=== PATIENT | female | born 1955 | race Caucasian/White ===

== ENCOUNTER 2020-03-17 10:26 | Emergency (ER) | payer MEDICARE, MEDICAID ==
[~2020-03-17] VITALS: Ht 170.2 cm; Wt 83.0 kg
[2020-03-17] MEDS ORDERED: LORazepam 2 mg/ml vial IV ONE (10:50)
[2020-03-17] MEDS ORDERED: normal saline 1000ML IV soln IVB ONE (10:50)
[2020-03-17] MEDS ORDERED: methylPREDNISolone sod succ 125mg/2ml vial IV ONE (10:50)
[2020-03-17] MEDS ORDERED: albuterol 2.5 MG/3 ML nebule NEB ONE (10:50)
[2020-03-17 11:17] LABS: BASOPHILS # (AUTO) 0.1 X10'3 (0-0.2); BASOPHILS % (AUTO) 1.4 % (0-1); EOSINOPHILS # (AUTO) 0.2 X10'3 (0-0.9); EOSINOPHILS % (AUTO) 3.3 % (0-6); HEMATOCRIT 38.5 % (35.0-45.0); HEMOGLOBIN 12.5 g/dl (12.0-16.0); LYMPHOCYTES # (AUTO) 2.4 X10'3 (1.1-4.8); LYMPHOCYTES % (AUTO) 35.1 % (21-51); MEAN CORPUSCULAR HEMOGLOBIN 26.9 PG (27.0-31.0); MEAN CORPUSCULAR HGB CONC 32.5 g/dL (33.0-36.5); MEAN CORPUSCULAR VOLUME 82.7 FL (78-98); MONOCYTES # (AUTO) 0.3 X10'3 (0-0.9); MONOCYTES % (AUTO) 4.1 % (2-12); NEUTROPHILS # (AUTO) 3.8 X10'3 (1.8-7.7); NEUTROPHILS % (AUTO) 56.1 % (42-75); PLATELET COUNT 292 X10'3 (140-440); RED BLOOD COUNT 4.65 X10'6 (4.20-5.60); RED CELL DISTRIBUTION WIDTH 14.9 % (11.5-14.5); WHITE BLOOD COUNT 6.8 X10'3 (4.5-11.0)
[2020-03-17 11:28] LABS: ALANINE AMINOTRANSFERASE 22 U/L (12-78); ALBUMIN 3.3 G/DL (3.4-5.0); ALKALINE PHOSPHATASE 112 IU/L (46-116); ANION GAP 4 (8-16); ASPARTATE AMINO TRANSFERASE 23 U/L (10-37); BILIRUBIN,TOTAL 0.5 MG/DL (0.1-1.0); BLOOD UREA NITROGEN 27 MG/DL (7-18); BUN/CREATININE RATIO 21.8 (6.6-38.0); CALCIUM 8.8 MG/DL (8.5-10.1); CHLORIDE 105 MMOL/L (99-107); CREATININE 1.24 MG/DL (0.40-0.90); GLUCOSE 124 MG/DL (70-104); POTASSIUM 3.9 MMOL/L (3.5-5.1); SODIUM 139 MMOL/L (135-145); TOTAL CARBON DIOXIDE 29.7 MMOL/L (24-32); TOTAL PROTEIN 6.5 G/DL (6.4-8.2); eGFR 44 ML/MIN
[2020-03-17] MEDS ORDERED: LORA-269 PO (11:56)
[2020-03-17] MEDS ORDERED: PRED20TA PO (11:56)
[2020-03-17 12:36] VITALS: BP 145/85
== END 2020-03-17 12:38 | disposition home or self-care (01) ==
LOC: ER 10:27
DX: J45.909 Unspecified asthma, uncomplicated (principal); F41.9 Anxiety disorder, unspecified; E78.00 Pure hypercholesterolemia, unspecified; Z88.0 Allergy status to penicillin; Z88.5 Allergy status to narcotic agent; Z79.899 Other long term (current) drug therapy
CPT/HCPCS: 36415; 71045; 80053; 85025; 93005; 94640; 96361; 96374; 96375; 99285; J2060; J2930; J7030; 94760

== ENCOUNTER 2020-03-29 10:04 | Day surgery (SDC) | payer MEDICARE, MEDICAID ==
[~2020-03-29] VITALS: Ht 170.2 cm; Wt 82.7 kg
[~2020-03-29 10:04] MED LIST: LORA-269 PO
[2020-03-29 10:15] VITALS: BP 151/86
[2020-03-29] MEDS ORDERED: LIDOcaine Viscous 15ml cup ONE (10:23)
[2020-03-29] MEDS ORDERED: fentaNYL/PF 50MCG/1 ML 2ML syringe ONE ×2 (10:23→10:38)
[2020-03-29] MEDS ORDERED: MIDAZolam 5mg/5ml vial ONE ×2 (10:23→10:40)
[2020-03-29] MEDS ORDERED: MONT10TA21 PO (10:27)
[2020-03-29] MEDS ORDERED: LORA10TA7 PO (10:28)
[2020-03-29] MEDS ORDERED: ATOR10TA87 PO (10:29)
[2020-03-29] MEDS ORDERED: LISI-604 PO (10:29)
[2020-03-29] MEDS ORDERED: PANT-47 PO (10:30)
[2020-03-29] MEDS ORDERED: CYCL5TAB PO (10:31)
[2020-03-29] MEDS ORDERED: MAGN250T11 PO (10:32)
[2020-03-29] MEDS ORDERED: AREDS PO (10:33)
[2020-03-29] MEDS ORDERED: ALBU8HFA PO (10:35)
[2020-03-29] MEDS ORDERED: BUDE10.2 INH (10:35)
[2020-03-29] MEDS ORDERED: NAPR-56 PO (10:36)
[2020-03-29] MEDS ORDERED: FLUT16SP11 BOTHNARES (10:38)
[2020-03-29 10:50] VITALS: BP 114/73
[2020-03-29 11:00] VITALS: BP 114/67
[2020-03-29 11:10] VITALS: BP 122/87
[2020-03-29 11:20] VITALS: BP 121/76
== END 2020-03-29 11:30 | disposition home or self-care (01) ==
LOC: GI LAB 10:04
PROVIDERS: ATTEND Internal Medicine Gastroenterology
DX: R12 Heartburn (principal); K21.00 Gastro-esophageal reflux disease with esophagitis, without bleeding; K44.9 Diaphragmatic hernia without obstruction or gangrene; K29.50 Unspecified chronic gastritis without bleeding; J44.9 Chronic obstructive pulmonary disease, unspecified; I10 Essential (primary) hypertension; Z88.0 Allergy status to penicillin; Z88.5 Allergy status to narcotic agent; Z79.899 Other long term (current) drug therapy
CPT/HCPCS: 43239; G0500; J2250; J3010; J7040; 99152; A4620

== ENCOUNTER 2025-01-06 11:59 | Outpatient (CLI) | payer MEDICARE, MEDICAID ==
[~2025-01-06 11:59] MED LIST changes: +ALBU8HFA PO; +AREDS PO; +ATOR10TA87 PO; +BUDE10.2 INH; +CYCL-920 PO; +FLUT16SP11 BOTHNARES; +LISI5TAB22 PO; -LORA-269 PO; +LORA10TA7 PO; +MAGN250T11 PO; +MONT-47 PO; +NAPR-56 PO; +PANT-47 PO
--- NOTE | 2025-01-06 14:53 | RADIOLOGY REPORT ---
EXAM: CT CT SINUS HISTORY: OTHER SPECIFIED DISORDERS OF NOSE AND NASAL SINUSES COMPARISON: None TECHNIQUE: Noncontrast axial CT images of the paranasal sinuses were performed. Coronal and sagittal reformatted images were obtained. Radiation dose: CTDIvol 54.49 mGy, DLP 779.7 mGy*cm. This CT exam was performed using one or more of the following dose reduction techniques: Automated ex posure control, adjustment of the mA and/or kV according to patient size, or use of iterative reconst ruction technique. FINDINGS: The paranasal sinuses are clear. No facial bone fractures are identified. The nasal septum is essentially midline. The OMCs are patent. No ellie bullosa or Jacqueline cells. The left mastoid air cells and bilateral middle ear spaces are clear. There is mild fluid and sclerosis of the caudal aspe ct of the right mastoid air cells. There are postoperative changes of bilateral cataract extraction s urgery. The patient is edentulous. 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 IMPRESSION: 1. The paranasal sinuses are clear. 2. 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 3. Postoperative changes of Bilateral cataract extraction surgery.
== END 2025-01-06 23:59 | disposition home or self-care (01) ==
LOC: 64 CT 11:59
PROVIDERS: ATTEND Family Medicine
DX: J34.89 Other specified disorders of nose and nasal sinuses (principal); Z98.890 Other specified postprocedural states
CPT/HCPCS: 70486

== ENCOUNTER 2025-03-23 13:13 | Outpatient (CLI) | payer MEDICARE, MEDICAID ==
--- NOTE | 2025-03-23 14:27 | RADIOLOGY REPORT ---
Indication: HISTORY OF NICOTINE DEPENDENCE Technique: CT axial images of the chest are obtained without contrast. Coronal and sagittal reformats were obtained. Radiation Dose Information: CTDI volume is 3 mGy. Dose-length product is 103 mGy*cm Comparison: None FINDINGS: The trachea is patent. No pneumothorax. Pulmonary emphysematous changes. 3 mm left lower lobe subpleural nodule. 4 mm right upper lobe pulmonary nodule. Heart normal in size. Coronary artery calcification disease. Aortic atherosclerotic disease. No supraclavicular, axillary lymphadenopathy. Moderate thoracic degenerative disc disease. IMPRESSION: Limited evaluation without contrast. Pulmonary nodules up to 4 mm, lung rads 3. Recommend follow-up low-dose CT chest in 6 months. Pulmonary emphysematous changes. Coronary artery calcification disease.
== END 2025-03-23 23:59 | disposition home or self-care (01) ==
LOC: RAD 13:13
PROVIDERS: ATTEND Physician Assistant
DX: Z12.2 Encounter for screening for malignant neoplasm of respiratory organs (principal); J43.9 Emphysema, unspecified; I25.10 Atherosclerotic heart disease of native coronary artery without angina pectoris; M51.34 Other intervertebral disc degeneration, thoracic region; R91.8 Other nonspecific abnormal finding of lung field; Z87.891 Personal history of nicotine dependence
CPT/HCPCS: 71271

== ENCOUNTER 2025-06-12 13:29 | Outpatient (CLI) | payer MEDICARE, MEDICAID ==
--- NOTE | 2025-06-12 14:22 | RADIOLOGY REPORT ---
CLINICAL INDICATION: ACUTE COUGH/STERNUM PAIN TECHNIQUE: DI STERNUM 2VW MIN (AP/LAT) COMPARISON: CT CT CHEST LOW DOSE on DOS: 03/23/25, CHEST,SINGLE VIEW on DOS: 03/17/20 FINDINGS/IMPRESSION: : There is no evidence of acute fracture or dislocation. Soft tissues are unremarkable.
== END 2025-06-12 23:59 | disposition home or self-care (01) ==
LOC: RAD 13:29
PROVIDERS: ATTEND Nurse Practitioner Family
DX: R05.1 Acute cough (principal)
CPT/HCPCS: 71120